=== PATIENT | female | born 1960 | race Caucasian/White ===

== ENCOUNTER 2024-08-30 11:47 | Day surgery (SDC) | payer OTHER, SELFPAY ==
[2024-08-28 13:51] VITALS: BMI 18.6
--- NOTE | 2024-08-29 08:54 | HO.ANESPROP2 ---
Documented by User: Mona Weaver NP 08/29/24 08:54 HPI - Anesthesia Eval Consult details Narrative: 63yo F for Colonoscopy [facility] Past Medical History Medical History Abnormal biopsy result Carpal tunnel syndrome on both sides Thyroid disease PTSD (post-traumatic stress disorder) Bipolar 1 disorder Hx of radiation therapy Hx of squamous cell carcinoma Surgical History Surgical History Hx of colonoscopy Social History Social History Patient Tobacco Use Status: Never used Tobacco Have you been hit, kicked, punched, or otherwise hurt by someone within the past year? If so, by whom?: No Are you DNR?: No Advance Directives: No Advance Directives Information Provided: Yes Recently lost weight without trying: Unsure Nutrition Risks: No Nutritional Risk Meds Allergies Allergy/AdvReac Type Severity Reaction Status Date / Time No Known Allergies Allergy Verified 08/28/24 13:46 Home Medications ?Medication ?Instructions ?Recorded ?Confirmed ?Last Taken ?Type lamotrigine 200 mg tablet 200 mg PO BID 08/28/24 08/28/24 08/29/24 History levothyroxine 100 mcg tablet 100 mcg PO DAILY 08/28/24 08/28/24 08/29/24 History lorazepam 1 mg tablet 1 mg PO BID 08/28/24 08/28/24 08/30/24 07:00 History trazodone 300 mg tablet 300 mg PO BEDTIME 08/28/24 08/28/24 08/29/24 History venlafaxine 150 mg 150 mg PO DAILY 08/28/24 08/28/24 08/29/24 History capsule,extended release 24 hr (Effexor XR) Exam Height,Weight and Vital Signs: Height 5 ft 9 in Weight 57.153 kg Assessment and Plan Assessment Anesthesia Assessment: Chart Reviewed Documented by User: Vasiliy Sandoval MD 08/30/24 13:00 [facility] Past Medical History Medical History Abnormal biopsy result Carpal tunnel syndrome on both sides Thyroid disease PTSD (post-traumatic stress disorder) Bipolar 1 disorder Hx of radiation therapy Hx of squamous cell carcinoma Family History Family history of problems with anesthesia: No Surgical History Surgical History Hx of colonoscopy History of Problems with Anesthesia: No Social History Social History Patient Tobacco Use Status: Never used Tobacco Have you been hit, kicked, punched, or otherwise hurt by someone within the past year? If so, by whom?: No Are you DNR?: No Advance Directives: No Advance Directives Information Provided: Yes Recently lost weight without trying: Unsure Nutrition Risks: No Nutritional Risk Meds Allergies Allergy/AdvReac Type Severity Reaction Status Date / Time No Known Allergies Allergy Verified 08/28/24 13:46 Home Medications ?Medication ?Instructions ?Recorded ?Confirmed ?Last Taken ?Type lamotrigine 200 mg tablet 200 mg PO BID 08/28/24 08/28/24 08/29/24 History levothyroxine 100 mcg tablet 100 mcg PO DAILY 08/28/24 08/28/24 08/29/24 History lorazepam 1 mg tablet 1 mg PO BID 08/28/24 08/28/24 08/30/24 07:00 History trazodone 300 mg tablet 300 mg PO BEDTIME 08/28/24 08/28/24 08/29/24 History venlafaxine 150 mg 150 mg PO DAILY 08/28/24 08/28/24 08/29/24 History capsule,extended release 24 hr (Effexor XR) Exam Airway Mallampati Class: II TM Dist: >3cm Neck ROM: Full Assessment and Plan Assessment Anesthesia Assessment: Anesthesia Plan Discussed Final Anesthetic Review Family History of Problems with Anesthesia: No History of Problems with Anesthesia: No NPO: Yes ASA Class: II Final Preanesthetic Review: No Changes in Pt Med Stat, Meds/Allgs Chart Reviewed, Consent Obtained/Reviewed and Anes Risks/Benef Reviewed Patient Risk: Low Procedure Risk: Low Anesthetic Plan Anesthetic Plan: TIVA Disposition: Standard PACU
[2024-08-30 12:03] VITALS: BP 117/71; PULSE 80; RESP 18; TEMP 36.2; O2SAT 98; BMI 17.6
[2024-08-30] MEDS: Lactated Ringers 1,000 ML 100 ML IVCONT (12:16)
--- NOTE | 2024-08-30 12:56 | MHC.SHP ---
Pre-Procedural Eval Section A - 24 Hr Update-Section A only Date of Service: 08/30/24 The patient is an INPATIENT: No The patient has been examined within 24 hours of the surgical procedure. The History & Physical has been completed within 30 days and I have reviewed it.: Yes Section B - Complete if H&P > 30 days Chief Complaint: Other fecal abnormalities Allergies: Allergies Allergy/AdvReac Type Severity Reaction Status Date / Time No Known Allergies Allergy Verified 08/28/24 13:46 Plan I have reviewed the history and physical and performed a pertinent physical examination on my patient. No changes have occurred unless specified. Time Spent With Patient Time: Total time managing care of this patient today ____ minutes.
[2024-08-30 13:54] VITALS: BP 81/44; PULSE 70; RESP 16; TEMP 36.4; O2SAT 97
[2024-08-30 14:09] VITALS: BP 108/67; PULSE 77; RESP 16; O2SAT 97
--- NOTE | 2024-08-30 14:18 | OP_ITS ---
DATE OF SERVICE: 08/30/2024 SURGEON: Fernando Munoz MD INDICATIONS: Abnormal findings in stool. PREOPERATIVE DIAGNOSIS: POSTOPERATIVE DIAGNOSIS: PROCEDURE PERFORMED: Colonoscopy to the cecum with snare polypectomy. ESTIMATED BLOOD LOSS: COMPLICATIONS: ANESTHESIA: Monitored anesthesia care. ASSISTANTS: SPECIMENS: DESCRIPTION OF PROCEDURE: A history and physical was performed. The risks and benefits of the procedure were explained to the patient and informed consent was obtained. The patient was placed in the left lateral decubitus position. A digital rectal exam was performed and was found to be normal. The Olympus pediatric video colonoscope was introduced into the rectum and advanced to the cecum. The cecum was identified by transillumination, palpation, and identification of ileocecal valve. Examination was performed and the scope was removed. She tolerated the procedure well and was returned to recovery area in stable condition. FINDINGS: The terminal ileum was not examined. The exam was limited by a very large amount of liquid viscous stool with some undigested food material. This was washed and suctioned as best possible, but limited the examination extensively for detection of small and flat polyps. This also made the procedure extended and difficult. In the hepatic flexure, was an 8 x 15 mm sessile polyp, which was removed with a snare in piecemeal manner. The polyp was recovered via suction. No other polyps were identified, but the exam was limited as above. There was mild sigmoid diverticulosis. Retroflexed examination was limited, but showed no pathology. IMPRESSION: 1. Colon polyp. 2. Limited colonoscopy extended/difficult as above. RECOMMENDATIONS: 1. Follow up the biopsy results. 2. She will need repeat colonoscopy in 3 in 6 months with a 2-day prep. MD HAYDE Vallecillo/RICHARD / [id number] MTDD
== END 2024-08-30 14:40 | disposition home or self-care (01) ==
PROVIDERS: PCP Nurse Practitioner Family; Visit Provider Internal Medicine Gastroenterology
PROC: 0DJD8ZZ Inspection of Lower Intestinal Tract, Via Natural or Artificial Opening Endoscopic (ICD-10-PCS; CPT 45378; principal; 2024-08-30 13:00)
DX: R19.5 Other fecal abnormalities (principal); R19.8 Other specified symptoms and signs involving the digestive system and abdomen; D12.3 Benign neoplasm of transverse colon; K57.30 Diverticulosis of large intestine without perforation or abscess without bleeding; R63.4 Abnormal weight loss; Z68.1 Body mass index [BMI] 19.9 or less, adult; Z85.21 Personal history of malignant neoplasm of larynx; Z92.3 Personal history of irradiation; E03.9 Hypothyroidism, unspecified; F31.9 Bipolar disorder, unspecified; F43.10 Post-traumatic stress disorder, unspecified; Z79.899 Other long term (current) drug therapy
CPT/HCPCS: 45385; 88305; J2003; J2704

== ENCOUNTER 2025-04-06 09:41 | Day surgery (SDC) | payer OTHER, SELFPAY ==
[2025-04-04 10:26] VITALS: BMI 18.7
--- NOTE | 2025-04-04 14:13 | HO.ANESPROP2 ---
Documented by User: Mona Weaver NP 04/04/25 14:14 HPI - Anesthesia Eval Consult details Narrative: 64yo F for Colonoscopy s/p same 08/2024 with TIVA PMFSH Past Medical History Medical History (Updated 04/04/25 @ 10:46 by Paulette Ohara RN) History of alcohol dependence GERD (gastroesophageal reflux disease) Carpal tunnel syndrome on both sides Thyroid disease PTSD (post-traumatic stress disorder) Bipolar 1 disorder Hx of radiation therapy Hx of squamous cell carcinoma Family History Family history of problems with anesthesia: No Surgical History Surgical History (Updated 04/04/25 @ 10:46 by Paulette Ohara RN) History of laryngoscopy Hx of colonoscopy History of Problems with Anesthesia: No Social History Social History Patient Tobacco Use Status: Never used Tobacco Use of substances other than those prescribed or required for medical reasons: No Advance Directives: No Advance Directives Information Provided: Yes Meds Allergies Allergy/AdvReac Type Severity Reaction Status Date / Time No Known Allergies Allergy Verified 08/28/24 13:46 Home Medications ?Medication ?Instructions ?Recorded ?Confirmed ?Last Taken ?Type lamotrigine 200 mg tablet 200 mg PO BID 08/28/24 04/04/25 08/29/24 History levothyroxine 100 mcg tablet 100 mcg PO DAILY 08/28/24 04/04/25 08/29/24 History lorazepam 1 mg tablet 1 mg PO BID 08/28/24 04/04/25 08/30/24 07:00 History trazodone 300 mg tablet 300 mg PO BEDTIME 08/28/24 04/04/25 08/29/24 History venlafaxine 150 mg 150 mg PO DAILY 08/28/24 04/06/25 04/06/25 07:00 History capsule,extended release 24 hr (Effexor XR) Exam Height,Weight and Vital Signs: Height 5 ft 9 in Weight 57.323 kg Assessment and Plan Assessment Anesthesia Assessment: Chart Reviewed Final Anesthetic Review Family History of Problems with Anesthesia: No History of Problems with Anesthesia: No Documented by User: Johnnie Cowan MD 04/06/25 11:15 [facility] Past Medical History Medical History (Updated 04/04/25 @ 10:46 by Paulette Ohara RN) History of alcohol dependence GERD (gastroesophageal reflux disease) Carpal tunnel syndrome on both sides Thyroid disease PTSD (post-traumatic stress disorder) Bipolar 1 disorder Hx of radiation therapy Hx of squamous cell carcinoma Cognitive capacity: good Functional capacity: independent ambulation Surgical History Surgical History (Updated 04/04/25 @ 10:46 by Paulette Ohara RN) History of laryngoscopy Hx of colonoscopy Social History Social History Patient Tobacco Use Status: Never used Tobacco Use of substances other than those prescribed or required for medical reasons: No Advance Directives: No Advance Directives Information Provided: Yes Meds Allergies Allergy/AdvReac Type Severity Reaction Status Date / Time No Known Allergies Allergy Verified 08/28/24 13:46 Home Medications ?Medication ?Instructions ?Recorded ?Confirmed ?Last Taken ?Type lamotrigine 200 mg tablet 200 mg PO BID 08/28/24 04/04/25 08/29/24 History levothyroxine 100 mcg tablet 100 mcg PO DAILY 08/28/24 04/04/25 08/29/24 History lorazepam 1 mg tablet 1 mg PO BID 08/28/24 04/04/25 08/30/24 07:00 History trazodone 300 mg tablet 300 mg PO BEDTIME 08/28/24 04/04/25 08/29/24 History venlafaxine 150 mg 150 mg PO DAILY 08/28/24 04/06/25 04/06/25 07:00 History capsule,extended release 24 hr (Effexor XR) Exam Exam Date and Time: 04/06/2025 Airway Mallampati Class: II TM Dist: >3cm Neck ROM: Full Loose/Missing/Broken Teeth: No Heart: rrr Lungs: cta Other: orienred Assessment and Plan Assessment Anesthesia Assessment: Anesthesia Plan Discussed and Smoking Cess. Discussed Final Anesthetic Review NPO: Yes ASA Class: II Final Preanesthetic Review: No Changes in Pt Med Stat, Meds/Allgs Chart Reviewed, Consent Obtained/Reviewed and Anes Risks/Benef Reviewed Patient Risk: Low Procedure Risk: Low Anesthetic Plan Anesthetic Plan: MAC: Disposition: Standard PACU
[2025-04-06 09:45] VITALS: BMI 17.1
[2025-04-06 10:00] VITALS: BP 133/76; PULSE 70; RESP 16; TEMP 37.6; O2SAT 96
[2025-04-06] MEDS: Lactated Ringers 1,000 ML 100 ML IVCONT (10:03)
--- NOTE | 2025-04-06 11:10 | P.HPSUR_ITS ---
Pre-Procedural Eval Section A - 24 Hr Update-Section A only Date of Service: 04/06/25 Section B - Complete if H&P > 30 days Chief Complaint: Other specified symptoms and signs involving the Details of Present Illness: see H&P no changes Relevant Family History (Specify if Yes): No Relevant Social History: None Present Medications: see Short Stay Collaborative assessment Medical History: No relevant PMH History of Previous Operations: No relevant previous surgery Allergies: Allergies Allergy/AdvReac Type Severity Reaction Status Date / Time No Known Allergies Allergy Verified 08/28/24 13:46 Review of Systems Sugical H&P ROS: Negative: Constitution, Cardiovascular, Respiratory, Neurological, Psychiatric, Hem-Onc, Allergic/Immunologic, Gastrointestinal, Genitourinary, Musculoskeletal, Integumentary, Endocrine and Eyes/Ears/Nos e/Throat Exam Surgical H&P Exam: Normal: HEENT, Normal: Heart, Normal: Lungs, Normal: Extremities, Normal: Abdomen, Normal: Skin and Normal: Neurological Plan Diagnosis/Plan: Unchanged I have reviewed the history and physical and performed a pertinent physical examination on my patient. No changes have occurred unless specified. Time Spent With Patient Time: Total time managing care of this patient today ____ minutes.
[2025-04-06 12:00] VITALS: BP 97/56; PULSE 64; RESP 16; TEMP 36.8; O2SAT 98
--- NOTE | 2025-04-06 12:05 | PM.OP ---
Brief Operative Note Date of Service: 04/06/25 Pre-op diagnosis: screening Procedure: colonoscopy Surgeon: Fernando Munoz MD Anesthesia: MAC Was an Administrative Dietitian used for this Procedure?: No Estimated blood loss (mL): 5 Pathology: other Condition: stable Disposition: PACU
[2025-04-06 12:15] VITALS: BP 124/62; PULSE 70; RESP 16; O2SAT 98
--- NOTE | 2025-04-06 21:50 | OP_ITS ---
DATE OF SERVICE: 04/06/2025 SURGEON: Fernando Munoz MD INDICATIONS: Colon cancer screening and history of positive stool DNA testing. PREOPERATIVE DIAGNOSIS: POSTOPERATIVE DIAGNOSIS: PROCEDURE PERFORMED: Colonoscopy to the cecum with biopsy. ESTIMATED BLOOD LOSS: COMPLICATIONS: ANESTHESIA: Monitored anesthesia care. ASSISTANTS: SPECIMENS: DESCRIPTION OF PROCEDURE: A history and physical was performed. The risks and benefits of the procedure were explained to the patient. Informed consent was obtained. The patient was placed in the left lateral decubitus position. A digital rectal exam was performed and was found to be normal. The Olympus pediatric video colonoscope was introduced into the rectum and advanced to the cecum. The cecum was identified by transillumination, palpation, and identification of ileocecal valve. Examination was performed. The scope was removed. She tolerated the procedure well and was returned to the recovery area in stable condition. FINDINGS: The terminal ileum was not examined. Abdominal wall pressure was used to assist in advancement of the scope due to looping in the sigmoid. A single polyp in the cecum was identified and removed with a biopsy forceps. This measured less than 5 mm. No other polyps were identified. Retroflexed examination showed some small internal hemorrhoids. IMPRESSION: Colon polyp. RECOMMENDATION: Follow up the biopsy results. MD HAYDE Vallecillo/JACQUELINL / [id number]
== END 2025-04-06 12:40 | disposition home or self-care (01) ==
PROVIDERS: PCP Nurse Practitioner Family; Visit Provider Internal Medicine Gastroenterology
PROC: 0DJD8ZZ Inspection of Lower Intestinal Tract, Via Natural or Artificial Opening Endoscopic (ICD-10-PCS; CPT 45378; principal; 2025-04-06 11:10)
DX: R19.4 Change in bowel habit (principal); K63.5 Polyp of colon; K56.2 Volvulus; K64.8 Other hemorrhoids; R19.5 Other fecal abnormalities; R63.4 Abnormal weight loss; Z68.1 Body mass index [BMI] 19.9 or less, adult; K21.9 Gastro-esophageal reflux disease without esophagitis; R19.8 Other specified symptoms and signs involving the digestive system and abdomen; E03.9 Hypothyroidism, unspecified; F10.21 Alcohol dependence, in remission; Z85.828 Personal history of other malignant neoplasm of skin; Z92.3 Personal history of irradiation; Z79.899 Other long term (current) drug therapy
CPT/HCPCS: 45380; 88305; J2003; J2704; J3010